=== PATIENT | female | born 1990 | race Two or more races ===

== ENCOUNTER 2023-09-22 11:40 | Emergency (ER) | payer OTHER ==
[~2023-09-22] VITALS: Ht 160 cm; Wt 74.3 kg
[2023-09-22 12:34] VITALS: BP 119/76; PULSE 93; RESP 18; TEMP 99.1; O2SAT 95
[2023-09-22] MEDS ORDERED: PRED20TA2 PO (12:42)
[2023-09-22] MEDS ORDERED: AUG875T PO (12:42)
== END 2023-09-22 12:51 | disposition home or self-care (01) ==
LOC: ER 11:40
DX: H66.93 Otitis media, unspecified, bilateral (principal); J01.00 Acute maxillary sinusitis, unspecified; Z79.899 Other long term (current) drug therapy